=== PATIENT | male | born 1960 | race Caucasian/White ===

== ENCOUNTER → 2022-03-02 12:21 | Outpatient (BNVA) | payer MEDICAID, SELFPAY | PROVIDERS: PCP Family Medicine; Referring Provider Family Medicine; Visit Provider Specialist | DX: G70.00 Myasthenia gravis without (acute) exacerbation; Z79.52 Long term (current) use of systemic steroids | CPT/HCPCS: 99205 ==

== ENCOUNTER → 2022-03-18 11:34 | Outpatient (BNVA) | payer MEDICAID, SELFPAY | PROVIDERS: PCP Family Medicine; Visit Provider Specialist | DX: G70.00 Myasthenia gravis without (acute) exacerbation (principal) | CPT/HCPCS: 99214 ==

== ENCOUNTER 2022-04-04 15:58 | Emergency (ER) | payer MEDICAID, SELFPAY ==
[2022-04-04 16:02] VITALS: BP 113/67; PULSE 88; RESP 20; TEMP 36.4; O2SAT 95; BMI 35.3
--- NOTE | 2022-04-04 16:29 | W.ED.ALLEREA ---
HPI - Allergic Reaction General: Chief complaint: Allergic Reaction Stated complaint: excessive sweating/salivating/vomitting Time Seen by Provider: 04/04/22 16:10 Source: patient Mode of arrival: ambulatory Limitations: no limitations History of Present Illness: HPI narrative: 61-year-old male presents emergency room complaining of vomiting hypersalivation hyperhidrosis. Began earlier today after he took his pruritus thiamine. Has been on the same dose for about a month and been titrating up he had problems earlier in the had titrated back down he is currently taking 60 mg 3 times a day. Denies any other recent illness or problems. In the exam room he is exclusively hyper salivating. He normally sees Dr. García. Onset (ago): hour(s) Exposure: medication Associated symptoms: Deny abdominal pain, difficulty breathing, dysphagia, dizziness, facial swelling, hoarseness, itching, lip swelling, nausea, rash, tongue swelling or vomiting Severity: moderate Treatment prior to arrival: none Previous Allergic Reaction History: none Review of Systems Const: Denies: fever(s), chills, body aches, change in appetite, fatigue or malaise Eyes: Denies: change in vision or blurry vision ENMT: Denies: hoarseness Card: Denies: chest pain, palpitations, irregular heart rhythm, edema, dyspnea on exertion or orthopnea Resp: Denies: dyspnea, productive cough or non-productive cough GI: Denies: abdominal pain, nausea, vomiting or dysphagia : Denies: flank pain, difficulty urinating, dysuria, urinary frequency or urinary urgency Skin/Breast: Denies: rash or pruritus Neuro: Denies: dizziness All/Imm: Denies: tongue swelling or facial swelling PFSH ED PFSH: Medical History (Updated 04/04/22 @ 17:28 by Carlito Ramsay DO) Hypertension Myasthenia gravis Surgical History (Updated 04/04/22 @ 17:26 by Carlito Ramsay DO) History of surgery on lower extremity Hx of knee surgery Social History Smoking and tobacco status: former smoker Alcohol intake: never Physical Exam Const: GENERAL APPEARANCE: cooperative and comfortable ORIENTATION/CONSCIOUSNESS: Yes awake, Yes oriented to person, Yes oriented to place and Yes oriented to time HENMT: COMMON NORMALS: normocephalic, atraumatic, hearing grossly normal bilaterally, external ears normal, EAC's normal, TM's normal bilaterally, Normal nasal mucous membranes and turbinates present, moist oral mucous membranes and oropharynx normal HEAD & SCALP: normocephalic and atraumatic NOSE: Normal nasal mucous membranes and turbinates present EXTERNAL EAR: Yes external ears normal EXTERNAL AUDITORY CANAL: EAC's normal TYMPANIC MEMBRANE: TM's normal bilaterally Eye: COMMON NORMALS: Equal, round and reactive pupils present, EOMs intact bilaterally, conjunctivae normal and no scleral icterus CONJUNCTIVA: Yes conjunctivae normal PUPIL: Yes Equal, round and reactive pupils present Neck/C-Spine: COMMON NORMALS: full ROM, no lymphadenopathy, supple and no JVD Lymph: LYMPHATIC: no lymphadenopathy noted and no lymphedema noted Resp: COMMON NORMALS: normal respiratory effort, No retractions, No use of accessory muscles and clear to auscultation bilaterally AUSCULTATION: clear to auscultation bilaterally Cardio: COMMON NORMALS: no JVD, regular rate, regular rhythm and No murmurs present (Cardio) RATE: regular rate RHYTHM: regular rhythm GI: COMMON NORMALS: Soft to palpation and No hepatosplenomegaly present AUSCULTATION: Yes normoactive bowel sounds PALPATION: Yes Soft to palpation, No Tenderness to palpation present (GI), No Guarding due to palpation present (GI) and Yes No hepatosplenomegaly present Extremity: COMMON NORMALS: normal to inspection, capillary refill normal, no clubbing, cyanosis or edema, no calf tenderness and no pedal edema Neuro: SENSORIUM/ORIENTATION: Yes oriented to person, Yes oriented to place and Yes oriented to time Skin: COMMON NORMALS: no rashes or lesions noted GENERAL SKIN EXAM: no rashes or lesions noted Course Vital Signs: Vital signs: Vital Signs Temperature 97.6 F 04/04/22 16:02 Pulse Rate 101 H 04/04/22 17:49 Respiratory Rate 18 04/04/22 17:49 Blood Pressure 110/85 04/04/22 17:49 Pulse Oximetry 96 04/04/22 17:49 Oxygen Delivery Me thod 04/04/22 16:02 MDM - Allergic Reaction Medical Decision Making Labs unremarkable vitals normal EKG does not show any bradycardia. LDG is at the point where he needs to have this reversed with atropine. I do think it be good for him at least until he can contact Dr. García to decrease his dose. Recommend that he go to 30 mg 4 times a day decreasing his total dose from 180 mg in a day to 120 mg in a day. And then follow-up with Dr. García first available on Wednesday. Medical Records I reviewed the patient's medical records. Lab Data I reviewed the patient's lab results. : 04/04/22 16:43 04/04/22 16:43 Laboratory Results WBC 9.9 10^3/uL (4.0-10.0) 04/04/22 16:43 RBC 5.20 10^6/uL (4.1-5.3) 04/04/22 16:43 Hgb 15.1 g/dL (11.7-16.6) 04/04/22 16:43 Hct 45.2 % (42.0-52.0) 04/04/22 16:43 MCV 86.9 fl (80-94) 04/04/22 16:43 MCH 29.0 pg (28.0-34.0) 04/04/22 16:43 MCHC 33.4 g/dL (30.0-36.0) 04/04/22 16:43 RDW 14.2 % (12.1-15.1) 04/04/22 16:43 Plt Count 268 10^3/cmm (130-400) 04/04/22 16:43 MPV 8.3 fL (7.4-10.4) 04/04/22 16:43 Neut % (Auto) 84.3 % 04/04/22 16:43 Lymph % (Auto) 11.5 % 04/04/22 16:43 [place] % (Auto) 3.6 % 04/04/22 16:43 Eos % (Auto) 0.1 % 04/04/22 16:43 Baso % (Auto) 0.1 % 04/04/22 16:43 Neut # (Auto) 8.37 10^3/uL (1.8-7.7) H 04/04/22 16:43 Lymph # (Auto) 1.1 10^3/uL (0.8-4.8) 04/04/22 16:43 [place] # (Auto) 0.4 10^3/uL (0.2-0.9) 04/04/22 16:43 Eos # (Auto) 0.0 10^3/uL (0.0-0.8) 04/04/22 16:43 Baso # (Auto) 0.0 10^3/uL (0.0-0.1) 04/04/22 16:43 Nucleated RBC % (auto) 0 % 04/04/22 16:43 Nucleated RBCs # 0.0 /100WBC 04/04/22 16:43 Sodium 126 mmol/L (136-145) L 04/04/22 16:43 Potassium 3.5 mmol/L (3.5-5.1) 04/04/22 16:43 Chloride 90 mmol/L (98-107) L 04/04/22 16:43 Carbon Dioxide 24 mmol/L (22-29) 04/04/22 16:43 Anion Gap 15.5 (5-19) 04/04/22 16:43 BUN 24 mg/dL (8-23) H 04/04/22 16:43 Creatinine 0.7 mg/dL (0.7-1.2) 04/04/22 16:43 GFR Calculation 113.9 mL/min (90-130) 04/04/22 16:43 Glucose 142 mg/dL (65-115) H 04/04/22 16:43 Calculated Osmolality 268 mOsm/kg (285-295) L 04/04/22 16:43 Calcium 8.8 mg/dL (8.5-10.5) 04/04/22 16:43 Total Bilirubin 0.7 mg/dL (0.15-1.2) 04/04/22 16:43 AST 20 U/L (0-40) 04/04/22 16:43 ALT 25 U/L (0-41) 04/04/22 16:43 Alkaline Phosphatase 80 U/L (40-130) 04/04/22 16:43 Total Protein 8.6 g/dL (6.6-8.7) 04/04/22 16:43 Albumin 3.1 g/dL (3.5-5.2) L 04/04/22 16:43 Globulin 5.5 g/dL (1.3-4.6) H 04/04/22 16:43 Discharge Plan Discharge Patient Disposition: Home Clinical Impression: Myasthenia gravis, Medication side effect Condition: Stable Prescriptions: Changed pyridostigmine bromide 60 mg tablet 30 mg PO QID Qty: 90 3RF No Action amlodipine 10 mg tablet 10 mg PO DAILY cyclobenzaprine 10 mg tablet 10 mg PO TID hydrocodone-acetaminophen 7.5-325 mg tablet 1 tab PO BID PRN lisinopril-hydrochlorothiazide 20-25 mg tablet 1 tab PO DAILY pravastatin 40 mg tablet 40 mg PO DAILY omeprazole 20 mg capsule,delayed release(DR/EC) 20 mg PO DAILY tamsulosin 0.4 mg capsule 0.4 mg PO DAILY mycophenolate mofetil [CellCept] 500 mg tablet 500 mg PO ONCE Qty: 7 0RF Rx Instructions: 1 tab once a day for 7 days mycophenolate mofetil [CellCept] 500 mg tablet 500 mg PO BID Qty: 60 3RF prednisone 10 mg tablet 30 mg PO ONCE Qty: 90 1RF Discharge Orders: Discharge ED (Routine); Ordered 04/04/22 Ordered By: Carlito Ramsay Referrals: Asia Gr DO [Primary Care Provider] - Patient Instructions: Opioid Safety Activity Restrictions/Additional Instructions: Decrease your pyridostigmine to 30 mg 4 times daily. Follow-up with Dr. García first available day. Coding Level of Care Code ED Lay Out Technician for Coleen Fwd Exam Comprehensive
--- NOTE | 2022-04-04 16:30 | ECG_ITS ---
[facility] Test Date: 2022-04-04 Pat Name: Ernesto Reynaga Department: Room: Gender: Male Data Processing Clerk: : 1960 Requested By: Carlito Zhu Order Number: [id number] Rhianna MD: Kings Castrejon M.D. Measurements Intervals [place] Rate: 89 P: [place]: QRS: -15 QRSD: 103 T: 123 QT: 371 QTc: 451 Interpretive Statements ATRIAL FIBRILLATION MODERATE VOLTAGE CRITERIA FOR LVH, CONSIDER NORMAL VARIANT [MEETS CRITERIA IN ONE OF: R(aVL), S(V1), R(V5), R(V5/V6)+S(V1)] ST DEVIATION AND MODERATE T-WAVE ABNORMALITY, CONSIDER LATERAL ISCHEMIA [-0.1+ mV T-WAVE IN I/aVL/V5/V6] No previous ECG available for comparison Electronically Signed On 04-05-2022 13:18:36 CDT by Kings Castrejon M.D. [email or web address]
[2022-04-04 17:00] LABS: Basophils % 0.1 %; Eosinophils % 0.1 %; Hematocrit 45.2 % (42.0-52.0); Hemoglobin 15.1 g/dL (11.7-16.6); Lymphocytes # 1.1 10^3/uL (0.8-4.8); Lymphocytes % 11.5 %; Mean Corpuscular HGB Conc 33.4 g/dL (30.0-36.0); Mean Corpuscular Volume 86.9 fl (80-94); Mean Platelet Volume 8.3 fL (7.4-10.4); Monocytes # 0.4 10^3/uL (0.2-0.9); Monocytes % 3.6 %; Neutrophils # 8.37 10^3/uL (1.8-7.7); Neutrophils % 84.3 %; Nucleated Red Blood Cells % 0 %; Platelet Count 268 10^3/cmm (130-400); Red Cell Distribution Width 14.2 % (12.1-15.1); White Blood Count 9.9 10^3/uL (4.0-10.0)
[2022-04-04 17:31] LABS: Alanine Aminotransferase 25 U/L (0-41); Albumin Level 3.1 g/dL (3.5-5.2); Alkaline Phosphatase 80 U/L (40-130); Aspartate Amino Transferase 20 U/L (0-40); Blood Urea Nitrogen 24 mg/dL (8-23); Calcium 8.8 mg/dL (8.5-10.5); Carbon Dioxide 24 mmol/L (22-29); Chloride 90 mmol/L (98-107); Creatinine Clr Calc Pharmacy 151.5788; Globulin 5.5 g/dL (1.3-4.6); Glomerular Filtration Rate 113.9 mL/min (90-130); Glucose 142 mg/dL (65-115); Osmolality Calculated 268 mOsm/kg (285-295); Sodium 126 mmol/L (136-145); Total Bilirubin 0.7 mg/dL (0.15-1.2); Total Protein 8.6 g/dL (6.6-8.7)
[2022-04-04 17:37] LABS: Anion Gap 15.5 (5-19); Potassium 3.5 mmol/L (3.5-5.1)
[2022-04-04 17:49] VITALS: BP 110/85; PULSE 101; RESP 18; O2SAT 96
== END 2022-04-04 17:50 | disposition home or self-care (01) ==
PROVIDERS: Emergency Provider Family Medicine; PCP Family Medicine
DX: G70.00 Myasthenia gravis without (acute) exacerbation (principal); T50.905A Adverse effect of unspecified drugs, medicaments and biological substances, initial encounter; I10 Essential (primary) hypertension; Z87.891 Personal history of nicotine dependence
CPT/HCPCS: 80053; 85025; 93005; 99284